=== PATIENT | female | born 1950 | race Caucasian/White ===

== ENCOUNTER 2020-04-07 09:59 | Outpatient (CLI) | payer MEDICARE, OTHER, SELFPAY ==
--- NOTE | ~2020-04-07 | MM_ITS ---
EXAMINATION: MM screening roopa BI w artem HISTORY: Screening mammogram TECHNIQUE: Craniocaudal and mediolateral oblique 3-D tomosynthesis images were obtained and synthetic 2-D images were generated. CAD analysis was submitted and interpreted. COMPARISON: 11/27/2018, 11/21/2017, 11/19/2016 bilateral digital screening mammogram examinations BREAST PARENCHYMAL COMPOSITION: There are scattered areas of fibroglandular density. FINDINGS: There is no evidence of suspicious mass, calcification, or architectural distortion to sugg est malignancy in either breast. There has been no suspicious interval change. IMPRESSION: 1. No mammographic evidence of malignancy. 2. Recommend routine screening mammography in one year. BI-RADS Category 1: Negative Reviewed, dictated and finalized at location A.
== END 2020-04-07 10:00 | disposition home or self-care (01) ==
LOC: ANHIMG 10:03
PROVIDERS: PCP Internal Medicine; Visit Provider Internal Medicine
DX: Z12.31 Encounter for screening mammogram for malignant neoplasm of breast (principal)
CPT/HCPCS: 77063; 77067

== ENCOUNTER 2021-05-06 10:31 | Outpatient (CLI) | payer MEDICARE, OTHER, SELFPAY ==
--- NOTE | ~2021-05-06 | MM_ITS ---
EXAMINATION: MM screening roopa BI w artem HISTORY: Screening mammogram TECHNIQUE: Craniocaudal and mediolateral oblique 3-D tomosynthesis images were obtained and synthetic 2-D images were generated. CAD analysis was submitted and interpreted. COMPARISON: 04/07/2020, 11/27/2018 BREAST PARENCHYMAL COMPOSITION: There are scattered areas of fibroglandular density. FINDINGS: There is no evidence of suspicious mass, calcification, or architectural distortion to sugg est malignancy in either breast. There has been no suspicious interval change. IMPRESSION: 1. No mammographic evidence of malignancy. 2. Recommend routine screening mammography in one year. BI-RADS Category 1: Negative Reviewed, dictated and finalized at location D. DULING COORDINATOR
== END 2021-05-06 10:32 | disposition home or self-care (01) ==
LOC: ANHIMG 10:36
PROVIDERS: PCP Internal Medicine; Visit Provider Internal Medicine
DX: Z12.31 Encounter for screening mammogram for malignant neoplasm of breast (principal)
CPT/HCPCS: 77063; 77067

== ENCOUNTER 2022-05-21 07:14 | Outpatient (CLI) | payer MEDICARE, OTHER, SELFPAY ==
[2022-05-21 07:42] LABS: Hemoglobin A1C 5.3 % (<5.7)
[2022-05-21 08:40] LABS: Alanine Aminotransferase 12 U/L (14-59); Albumin Level 3.6 g/dL (3.4-5.0); Alkaline Phosphatase 106 U/L (46-116); Anion Gap 8 mmol/L (8-16); Aspartate Amino Transferase 16 U/L (15-37); Bilirubin,Total 0.6 mg/dL (0.00-1.00); Blood Urea Nitrogen 14 mg/dL (7-18); Carbon Dioxide 33 mmol/L (21-32); Chloride 103 mmol/L (98-108); Estimated Glomerular Filt Rate 53; Glucose 105 mg/dL (70-99); Osmolality Calculated 298 mOsm/kg (285-295); Potassium 3.7 mmol/L (3.5-5.1); Sodium 144 mmol/L (136-145); Thyroid Stimulating Hormone 1.63 uIU/mL (0.36-3.74); Total Protein 6.7 g/dL (6.4-8.2)
== END 2022-05-21 07:15 | disposition home or self-care (01) ==
LOC: CHSLAB 07:20
PROVIDERS: PCP Internal Medicine; Visit Provider Nurse Practitioner
DX: E03.9 Hypothyroidism, unspecified (principal); R73.01 Impaired fasting glucose; I10 Essential (primary) hypertension
CPT/HCPCS: 36415; 80053; 83036; 84443

== ENCOUNTER 2022-07-01 09:59 | Outpatient (CLI) | payer MEDICARE, SELFPAY ==
--- NOTE | ~2022-07-01 | MM_ITS ---
EXAMINATION: MM screening [facility] BI w artem HISTORY: Screening TECHNIQUE: Craniocaudal and mediolateral oblique 3-D tomosynthesis images were obtained and synthetic 2-D images were generated. CAD analysis was submitted and interpreted. COMPARISON: No prior mammogram is available for comparison at this institution. BREAST PARENCHYMAL COMPOSITION: There are scattered areas of fibroglandular density. FINDINGS: There is no evidence of suspicious mass, calcification, or architectural distortion to sugg est malignancy in either breast. There has been no suspicious interval change. IMPRESSION: 1. No mammographic evidence of malignancy. 2. Recommend routine screening mammography in one year. BI-RADS Category 1: Negative Reviewed, dictated and finalized at location A. CTORY ASSISTANCE OPERATOR
== END 2022-07-01 10:00 | disposition home or self-care (01) ==
PROVIDERS: Visit Provider Nurse Practitioner
DX: Z12.31 Encounter for screening mammogram for malignant neoplasm of breast (principal)
CPT/HCPCS: 77063; 77067

== ENCOUNTER 2022-12-13 07:16 | Outpatient (CLI) | payer MEDICARE, OTHER, SELFPAY ==
[2022-12-13 07:34] LABS: Hematocrit 41.1 % (35.0-42.0); Hemoglobin 13.8 g/dL (11.7-13.8); Mean Corpuscular HGB Conc 33.6 g/dL (32.0-36.0); Mean Corpuscular Hemoglobin 31.9 pg (27.0-31.0); Mean Corpuscular Volume 95.1 fL (78.0-102.0); Mean Platelet Volume 9.2 fl (9.2-11.8); Platelet Count Result 169 K/mm3 (150-420); Red Blood Count 4.32 M/mm3 (4.20-5.40); Red Cell Distribution Width 13.5 % (11.6-14.4); White Blood Count 6.9 K/mm3 (4.8-10.8)
[2022-12-13 08:10] LABS: Hemoglobin A1C 5.7 % (<5.7)
[2022-12-13 08:20] LABS: Alanine Aminotransferase 21 U/L (14-59); Albumin Level 3.5 g/dL (3.4-5.0); Alkaline Phosphatase 91 U/L (46-116); Anion Gap 7 mmol/L (8-16); Aspartate Amino Transferase 16 U/L (15-37); Bilirubin,Total 0.4 mg/dL (0.00-1.00); Blood Urea Nitrogen 19 mg/dL (7-18); Calcium 9.2 mg/dL (8.5-10.1); Carbon Dioxide 31 mmol/L (21-32); Chloride 104 mmol/L (98-108); Estimated Glomerular Filt Rate 59; Glucose 99 mg/dL (70-99); Osmolality Calculated 296 mOsm/kg (285-295); Potassium 3.9 mmol/L (3.5-5.1); Sodium 142 mmol/L (136-145); Thyroid Stimulating Hormone 1.03 uIU/mL (0.36-3.74); Total Protein 6.5 g/dL (6.4-8.2)
== END 2022-12-13 07:17 | disposition home or self-care (01) ==
LOC: CHSLAB 07:19
PROVIDERS: PCP Family Medicine; Visit Provider Family Medicine
DX: E03.9 Hypothyroidism, unspecified (principal); E78.5 Hyperlipidemia, unspecified; R73.01 Impaired fasting glucose; E55.9 Vitamin D deficiency, unspecified
CPT/HCPCS: 36415; 80053; 83036; 84443; 85027

== ENCOUNTER 2023-05-31 07:08 | Outpatient (CLI) | payer MEDICARE, SELFPAY ==
[2023-05-31 07:22] LABS: Hematocrit 42.6 % (35.0-42.0); Hemoglobin 13.9 g/dL (11.7-13.8); Mean Corpuscular HGB Conc 32.6 g/dL (32.0-36.0); Mean Corpuscular Hemoglobin 31.1 pg (27.0-31.0); Mean Corpuscular Volume 95.3 fL (78.0-102.0); Mean Platelet Volume 9.3 fl (9.2-11.8); Platelet Count Result 291 K/mm3 (150-420); Red Blood Count 4.47 M/mm3 (4.20-5.40); Red Cell Distribution Width 13.7 % (11.6-14.4)
[2023-05-31 07:35] LABS: Hemoglobin A1C 5.7 % (<5.7)
[2023-05-31 08:02] LABS: Alanine Aminotransferase 25 U/L (14-59); Albumin Level 3.6 g/dL (3.4-5.0); Alkaline Phosphatase 92 U/L (46-116); Anion Gap 2 mmol/L (8-16); Aspartate Amino Transferase 16 U/L (15-37); Bilirubin,Total 0.5 mg/dL (0.00-1.00); Blood Urea Nitrogen 22 mg/dL (7-18); Calcium 9.1 mg/dL (8.5-10.1); Carbon Dioxide 34 mmol/L (21-32); Chloride 100 mmol/L (98-108); Cholesterol 176 mg/dL (0-200); Estimated Glomerular Filt Rate 51; Glucose 103 mg/dL (70-99); HDL Direct 70 mg/dL (40-60); LDL Cholesterol Calculated 88 mg/dL (<130); Osmolality Calculated 285 mOsm/kg (285-295); Potassium 3.9 mmol/L (3.5-5.1); Sodium 136 mmol/L (136-145); Thyroid Stimulating Hormone 0.56 uIU/mL (0.36-3.74); Total Protein 6.5 g/dL (6.4-8.2); Triglycerides 91 mg/dL (0-150)
[2023-06-03 12:27] LABS: Vitamin D 25 Hydroxy 50 ng/mL (30-100)
== END 2023-05-31 07:09 | disposition home or self-care (01) ==
LOC: CHSLAB 07:11
PROVIDERS: PCP Family Medicine; Visit Provider Family Medicine
DX: F41.1 Generalized anxiety disorder (principal); R73.01 Impaired fasting glucose; I10 Essential (primary) hypertension; E66.01 Morbid (severe) obesity due to excess calories; E03.9 Hypothyroidism, unspecified; E55.9 Vitamin D deficiency, unspecified
CPT/HCPCS: 36415; 80053; 80061; 82306; 83036; 84443; 85027

== ENCOUNTER 2023-09-08 11:19 | Outpatient (CLI) | payer MEDICARE, OTHER, SELFPAY ==
[2023-09-08 11:33] LABS: Hematocrit 43.7 % (35.0-42.0); Hemoglobin 14.2 g/dL (11.7-13.8); Mean Corpuscular HGB Conc 32.5 g/dL (32-36); Mean Corpuscular Hemoglobin 30.5 pg (27.0-31.0); Mean Corpuscular Volume 93.8 fL (78.0-102.0); Mean Platelet Volume 9.4 fl (9.2-11.8); Platelet Count Result 160 K/mm3 (150-420); Red Blood Count 4.66 M/mm3 (4.20-5.40); Red Cell Distribution Width 13.8 % (11.6-14.4); White Blood Count 7.6 K/mm3 (4.8-10.8)
[2023-09-08 12:52] LABS: Anion Gap 8 mmol/L (8-16); Blood Urea Nitrogen 18 mg/dL (7-18); Calcium 9.4 mg/dL (8.5-10.1); Carbon Dioxide 31 mmol/L (21-32); Chloride 103 mmol/L (98-108); Estimated Glomerular Filt Rate > 60; Glucose 73 mg/dL (70-99); Osmolality Calculated 294 mOsm/kg (285-295); Potassium 4.1 mmol/L (3.5-5.1); Sodium 142 mmol/L (136-145)
== END 2023-09-08 11:20 | disposition home or self-care (01) ==
LOC: CHSLAB 11:21
PROVIDERS: PCP Family Medicine; Visit Provider Family Medicine
DX: D58.2 Other hemoglobinopathies (principal); N18.9 Chronic kidney disease, unspecified; I10 Essential (primary) hypertension
CPT/HCPCS: 36415; 80048; 85027

== ENCOUNTER 2023-09-15 08:24 | Outpatient (CLI) | payer MEDICARE, SELFPAY ==
--- NOTE | ~2023-09-15 | MM_ITS ---
EXAMINATION: MM screening [facility] BI w artem HISTORY: Screening mammogram TECHNIQUE: Craniocaudal and mediolateral oblique 3-D tomosynthesis images were obtained and synthetic 2-D images were generated. CAD analysis was submitted and interpreted. COMPARISON: 07/01/2022, 05/06/2021 bilateral screening mammogram examinations BREAST PARENCHYMAL COMPOSITION: There are scattered areas of fibroglandular density. FINDINGS: There is no evidence of suspicious mass, calcification, or architectural distortion to sugg est malignancy in either breast. There has been no suspicious interval change. IMPRESSION: 1. No mammographic evidence of malignancy. 2. Recommend routine screening mammography in one year. BI-RADS Category 1: Negative Reviewed, dictated and finalized at location A.
--- NOTE | ~2023-09-15 | DEXA_ITS ---
Bone Density Report Name: INGRID GUZMAN Age: 72 Sex: Female Ethnicity: White Date of : 1950 Indication: postmenopausal; screening for osteoporosis; height loss; Referring Provider: JUAN LUJAN Study: Bone densitometry was performed. Exam Date: September 15, 2023 Accession number: [id number] Bone Density: Region BMD T-score Z-score Classification AP Spine(L1, L2, L3) 1.013 0.0 2.2 Normal Femoral Neck (Left) 0.729 -1.1 0.9 Osteopenia Total Hip (Left) 1.074 1.1 2.8 Normal Femoral Neck (Right) 0.698 -1.4 0.6 Osteopenia Total Hip (Right) 1.025 0.7 2.4 Normal Total Hip Mean 1.050 0.9 2.6 Normal World Health Organization criteria for BMD impression classify patients as: Normal (T-score at or above -1.0), Osteopenia (T-score between -1.0 and -2.5), or Osteoporosis (T-score at or below -2.5). 10-year Fracture Risk(1): Major Osteoporotic Fracture 8.6% Hip Fracture 1.3% Reported Risk Factors: [place] (), Neck BMD=0.698, BMI=46.2 (1) FRAX(R) Version 3.08. Fracture probability calculated for an untreated patient. Fracture probability may be lower if the patient has received treatment. Previous Exams: Region Exam Age BMD T-score BMD Change BMD Change Date g/cm2 vs Baseline vs Previous Total Hip(Left) 09/15/2023 72 1.074 1.1 -0.020 (-1.8%) -0.020 (-1.8%) 09/14/2018 67 1.094 1.2 Total Hip(Right) 09/15/2023 72 1.025 0.7 -0.016 (-1.6%) -0.016 (-1.6%) 09/14/2018 67 1.041 0.8 *Denotes significance at 95% confidence level, LSC for Total Hip = 0.027 g/cm2 # Denotes dissimilar scan types or analysis methods Clinical Information Provided by Patient: Has used the following medications: Vitamin D, Calcium Patient maximum height was 64 Menopause Age: 48 No regular weight bearing exercise Does not regularly consume dairy products Drinks caffeinated beverages Onset of menses at age 10 Number of children 0 Impression: The patient has low bone mass, based on the Right Femoral Neck T-score. The patient has an estimated ten-year risk of hip fracture of 1.3% and an estimated ten-year risk of major fracture of 8.6%, based on the WHO FRAX algorithm. No significant bone loss was observed. Discussion: BONE DENSITY IS LOW AT ONE OR MORE SKELETAL SITES. This patient's lowest T-score is low at one or more skeletal sites. It meets the World Health Organization's (WHO) criteria for ?low bone mass? (T-score between -1.0 and -2.5). The patient's 10-year
== END 2023-09-15 08:25 | disposition home or self-care (01) ==
PROVIDERS: PCP Family Medicine; Visit Provider Family Medicine
DX: Z12.31 Encounter for screening mammogram for malignant neoplasm of breast (principal); M85.89 Other specified disorders of bone density and structure, multiple sites; Z78.0 Asymptomatic menopausal state
CPT/HCPCS: 77063; 77067; 77080

== ENCOUNTER 2023-12-20 13:55 | Outpatient (CLI) | payer MEDICARE, SELFPAY ==
[2023-12-20 14:12] LABS: Basophils Absolute Auto 0.05 K/mm3 (0.00-0.10); Basophils Percent Auto 0.6 % (0.0-1.0); Eosinophils Absolute Auto 0.16 K/mm3 (0.02-0.50); Eosinophils Percent Auto 1.8 % (1.0-6.0); Hematocrit 43.1 % (35.0-42.0); Hemoglobin 14.3 g/dL (11.7-13.8); Immature Granulocyte Absolute 0.04 K/mm3 (0.00-0.00); Immature Granulocyte Percent A 0.4 % (0.0-0.0); Lymphocytes Absolute Auto 2.34 K/mm3 (1.10-4.50); Lymphocytes Percent Auto 25.7 % (18.0-42.0); Mean Corpuscular HGB Conc 33.2 g/dL (32-36); Mean Corpuscular Hemoglobin 31.1 pg (27.0-31.0); Mean Corpuscular Volume 93.7 fL (78.0-102.0); Mean Platelet Volume 9.8 fl (9.2-11.8); Monocytes Absolute Auto 0.74 K/mm3 (0.10-0.90); Monocytes Percent Auto 8.1 % (2.0-11.0); Neutrophils Absolute Auto 5.76 K/mm3 (1.70-7.20); Neutrophils Percent Auto 63.4 % (50.0-70.0); Platelet Count Result 179 K/mm3 (150-420); Red Cell Distribution Width 13.6 % (11.6-14.4); White Blood Count 9.1 K/mm3 (4.8-10.8)
[2023-12-20 14:45] LABS: Iron 53 ug/dL (50-170); Percent Iron Saturation 17 % (12-57)
[2023-12-23 14:28] LABS: Erythropoietin (EPO) 11.6 mIU/mL (2.6-18.5)
== END 2023-12-20 13:56 | disposition home or self-care (01) ==
PROVIDERS: PCP Family Medicine; Visit Provider Family Medicine
DX: D75.1 Secondary polycythemia (principal); E55.9 Vitamin D deficiency, unspecified; N18.9 Chronic kidney disease, unspecified
CPT/HCPCS: 36415; 82668; 83540; 83550; 85025

== ENCOUNTER 2024-08-13 07:06 | Outpatient (CLI) | payer MEDICARE, SELFPAY ==
--- OUTSIDE RECORDS SUMMARY | 2024-08-13 07:12 | XMS_ITS | Encounter Summary ---
Author Organization [facility] Address [address] [place] [address] Care Team Providers Care Railroad Car Painter Name Role Phone Mary Jerry MD Primary Care Provider [phone] Encounter Details Date Type Department Care Team (Late st Contact Info) Description 01/14/2005 Outpatient Historical HIS MAMM VAN Conversion, History SCREENING MAMM-MAILG NEOPL-OTHER (Primary Dx) Social History Tobacco Use Types Packs/Day Years Used Date Smoking Tobacco: Never Assessed Comments Unknown Sex and Gender Information Value Date Recorded Sex Assigned at Not on file Legal Sex Female 5:08 AM MANAGER OF PROCUREMENT Gender Identity Not on file Sexual Orientation Not on file documented as of this encounter Plan of Treatment Not on file documented as of this encounter Visit Diagnoses Diagnosis Other screening mammogram- Primary documented in this encounter Care Teams Railroad Car Painter Relationship Specialty Start Date End Date Mary Jerry MD [address] [place] [phone] PCP - General 07/29/09 documented as of this encounter
--- OUTSIDE RECORDS SUMMARY | 2024-08-13 07:12 | XMS_ITS | Encounter Summary ---
Author Organization [facility] Address [address] [place] [address] Care Team Providers Care Supervisor Pipeline Name Role Phone Mary Jerry MD Primary Care Provider Encounter Details Date Type Department Care Team (Late st Contact Info) Description 03/19/2002 Outpatient Historical [facility] [address] [place] [address] Car Corrales (Two) Social History Tobacco Use Types Packs/Day Years Used Date Smoking Tobacco: Never Assessed Comments Unknown Sex and Gender Information Value Date Recorded Sex Assigned at Not on file Legal Sex Female 5:08 AM PARTY SUPPLY SPECIALIST Gender Identity Not on file Sexual Orientation Not on file documented as of this encounter Plan of Treatment Not on file documented as of this encounter Visit Diagnoses Not on filedocumented in this encounter Care Teams Supervisor Pipeline Relationship Specialty Start Date End Date Mary Jerry MD [address] [place] [phone] PCP - General 07/29/09 documented as of this encounter
--- OUTSIDE RECORDS SUMMARY | 2024-08-13 07:12 | XMS_ITS | Encounter Summary ---
Author Organization [facility] Address [address] [place] [address] Care Team Providers Care Paperhanger And Painter Name Role Phone Mary Jerry MD Primary Care Provider [phone] Encounter Details Date Type Department Care Team (Late st Contact Info) Description 02/02/2006 Outpatient Historical HIS MAMM VAN Conversion, History Other Screening Mammogram (Primary Dx) Social History Tobacco Use Types Packs/Day Years Used Date Smoking Tobacco: Never Assessed Comments Unknown Sex and Gender Information Value Date Recorded Sex Assigned at Not on file Legal Sex Female 5:08 AM COTTRELL BLOWER Gender Identity Not on file Sexual Orientation Not on file documented as of this encounter Plan of Treatment Not on file documented as of this encounter Visit Diagnoses Diagnosis Other screening mammogram- Primary documented in this encounter Care Teams Paperhanger And Painter Relationship Specialty Start Date End Date Mary Jerry MD [address] [place] [phone] PCP - General 07/29/09 documented as of this encounter
--- OUTSIDE RECORDS SUMMARY | 2024-08-13 07:12 | XMS_ITS | Encounter Summary ---
Author Organization [facility] Address [address] [place] [address] Care Team Providers Care Back Padder Name Role Phone Mary Jerry MD Primary Care Provider [phone] Encounter Details Date Type Department Care Team (Late st Contact Info) Description 07/20/2007 Outpatient Historical HIS MAMM VAN Conversion, History Other Screening Mammogram Social History Tobacco Use Types Packs/Day Years Used Date Smoking Tobacco: Never Assessed Comments Unknown Sex and Gender Information Value Date Recorded Sex Assigned at Not on file Legal Sex Female 5:08 AM SOFTWARE DEVELOPMENT ENGINEER Gender Identity Not on file Sexual Orientation Not on file documented as of this encounter Plan of Treatment Not on file documented as of this encounter Procedures Procedure Name Priority Date/Time Associated Diagnosis Comments MAMMO SCREENING BILAT Routine 07/20/2007 2:18 PM SOFTWARE DEVELOPMENT ENGINEER documented in this encounter Results * MAMMO SCREENING BILAT (07/20/2007 2:18 PM SOFTWARE DEVELOPMENT ENGINEER) Anatomical Region Laterality Modality Breast Bilateral Other 07/20/2007 2:18 PM SOFTWARE DEVELOPMENT ENGINEER Narrative 07/24/2007 4:31 PM SOFTWARE DEVELOPMENT ENGINEER [address] [address] Admit Date: 07/20/2007 DAMARI TURNER Sex: F Admit Prov: DOCTOR, NOT O Date: 1950 Primary Care Prov: CMRN: [id number] Room: [facility] SSN: [id number] IMAGING SERVICES Ordering Prov: DOCTOR, NOT O Accession Number: [id number] Interpretation BILATERAL SCREENING MAMMOGRAMS, 07/20/2007 Comparison Mammograms: 01/14/2005 Findings: The parenchyma is moderately dense bilaterally. There is no mass, malignant calcification, lymphadenopathy or other sign of malignancy. Summary: No mammographic evidence of malignancy. Assessment BIRADS: 1-Negative Recommendation: Normal interval follow-up Dictated by: AILEEN CROFT Electronically signed by: AILEEN CROFT 07/24/2007 16:31 Transcribed: 07/21/2007 13:20 AMK Procedure Note Aileen Croft - 07/24/2007 [facility] [address] [place] [place], [place] [address] Admit Date: 07/20/2007 DAMARI TURNER Sex: F Admit Prov: DOCTOR, NOT O Date: 1950 Primary Care Prov: CMRN: [id number] Room: [facility] SSN: [id number] IMAGING SERVICES Ordering Prov: DOCTOR, NOT O Interpretation BILATERAL SCREENING MAMMOGRAMS, 07/20/2007 Comparison Mammograms: 01/14/2005 Findings: The parenchyma is moderately dense bilaterally. There is nomass, malignant calcification, lymphadenopathy or other sign ofmalignancy. Summary: No mammographic evidence of malignancy. Assessment BIRADS: 1-Negative Recommendation: Normal interval follow-up Dictated by: AILEEN CROFT Electronically signed by: AILEEN CROFT 07/24/2007 16:31 Transcribed: 07/21/2007 13:20 AMK us History Conversion MAMMO ORDERABLES Final Result documented in this encounter Visit Diagnoses Diagnosis Other screening mammogram documented in this encounter Care Teams Back Padder Relationship Specialty Start Date End Date Mary Jerry MD [address] [place] [phone] PCP - General 07/29/09 documented as of this encounter
--- OUTSIDE RECORDS SUMMARY | 2024-08-13 07:12 | XMS_ITS | Clinical Summary ---
Author Organization [facility] Address [address] [place] [address] Phone Care Team Providers Care Lawn Mower Name Role Phone Mary Jerry MD Primary Care Provider [phone] Family History Medical History Relation Name Comments Breast Cancer Neg Hx Cancer Neg Hx Ovarian Cancer Neg Hx Social History Tobacco Use Types Packs/Day Years Used Date Smoking Tobacco: Never Assessed Comments Unknown Sex and Gender Information Value Date Recorded Sex Assigned at Not on file Legal Sex Female 5:08 AM OIL WELL SERVICE OPERATOR HELPER Gender Identity Not on file Sexual Orientation Not on file Plan of Treatment Health Maintenance Due Date Last Done Comments DTAP/TDAP/TD VACCINES (1 - Tdap) 1968 COLORECTAL SCREENING 1994 Colorectal Cancer Screening 1994 FIT-DNA Q 3 years 1994 FIT/FOBT Q 1 year 1994 Flex Sig/CT Colonography Q 5 years 1994 PNEUMOCOCCAL VACCINE 65+ YEA RS (1 of 1 - PCV) 12/21/1999 ZOSTER VACCINE (1 of 2) 12/21/1999 BREAST CANCER SCREENING 07/31/2010 07/31/2009, 07/20 OSTEOPOROSIS SCREENING 2014 INFLUENZA VACCINE (#1) 2024 RSV VACCINE (60+ or ) (1 - 1-dose 75+ series) 2024 Procedures Procedure Name Priority Date/Time Associated Diagnosis Comments MAMMO SCREENING BILAT Routine 07/31/2009 9:02 AM OIL WELL SERVICE OPERATOR HELPER Other Screening Mammogram from Last 3 Months or Most Recently Relevant to Health Maintenance Results * MAMMO SCREENING BILAT (07/31/2009 9:02 AM OIL WELL SERVICE OPERATOR HELPER) Anatomical Region Laterality Modality Breast Bilateral Mammography Impressions 08/01/2009 8:56 AM OIL WELL SERVICE OPERATOR HELPER : No mammographic evidence of malignancy. There has been no significant change from prior study of 07/20/2007. RECOMMENDATIONS: Bilateral yearly screening mammogram is recommended. OVERALL ASSESSMENT: BI-RADS Category: 1, negative. Narrative 08/01/2009 8:56 AM OIL WELL SERVICE OPERATOR HELPER BILATERAL SCREENING MAMMOGRAMS, 07/31/2009 HISTORY: Screening mammogram. FINDINGS: The breasts are almost entirely fat. No significant mass, malignant calcification or architectural distortion is noted. Procedure Note Reina Sewell MD - 08/01/2009 BILATERAL SCREENING MAMMOGRAMS, 07/31/2009 HISTORY: Screening mammogram. FINDINGS: The breasts are almost entirely fat. No significant mass,malignant calcification or architectural distortion is noted. IMPRESSION: No mammographic evidence of malignancy. There has been no significant change from prior study of 07/20/2007. RECOMMENDATIONS: Bilateral yearly screening mammogram is recommended. OVERALL ASSESSMENT: BI-RADS Category: 1, negative. External Provider [facility] MAMMO ORDERABLES Final R esult from Last 3 Months or Most Recently Relevant to Health Maintenance Care Teams Lawn Mower Relationship Specialty Start Date End Date Mary Jerry MD [address] [place] [phone] PCP - General 07/29/09
[2024-08-13 07:26] LABS: Hemoglobin 14.1 g/dL (11.7-13.8); Mean Corpuscular Hemoglobin 30.7 pg (27.0-31.0); Mean Corpuscular Volume 95.9 fL (78.0-102.0); Mean Platelet Volume 9.5 fl (9.2-11.8); Platelet Count Result 149 K/mm3 (150-420); Red Blood Count 4.59 M/mm3 (4.20-5.40); Red Cell Distribution Width 13.5 % (11.6-14.4); White Blood Count 7.2 K/mm3 (4.8-10.8)
[2024-08-13 08:14] LABS: Alanine Aminotransferase 16 U/L (14-59); Albumin Level 3.6 g/dL (3.4-5.0); Alkaline Phosphatase 108 U/L (46-116); Anion Gap 6 mmol/L (4-12); Aspartate Amino Transferase 15 U/L (15-37); Bilirubin,Total 0.6 mg/dL (0.00-1.00); Blood Urea Nitrogen 22 mg/dL (7-18); Calcium 9.3 mg/dL (8.5-10.1); Carbon Dioxide 34 mmol/L (21-32); Chloride 102 mmol/L (98-108); Cholesterol 191 mg/dL (0-200); Estimated Glomerular Filt Rate 55; Glucose 95 mg/dL (70-99); HDL Direct 80 mg/dL (40-60); LDL Cholesterol Calculated 95 mg/dL (<130); Osmolality Calculated 297 mOsm/kg (285-295); Sodium 142 mmol/L (136-145); Thyroid Stimulating Hormone 1.12 uIU/mL (0.36-3.74); Total Protein 6.7 g/dL (6.4-8.2); Triglycerides 78 mg/dL (0-150)
[2024-08-15 03:23] LABS: Vitamin D 25 Hydroxy 52 ng/mL (30-100)
== END 2024-08-13 07:07 | disposition home or self-care (01) ==
LOC: CHSLAB 07:09
PROVIDERS: PCP Family Medicine; Visit Provider Family Medicine
DX: D75.1 Secondary polycythemia (principal); D58.2 Other hemoglobinopathies; N18.9 Chronic kidney disease, unspecified; Z12.11 Encounter for screening for malignant neoplasm of colon; E66.01 Morbid (severe) obesity due to excess calories; I51.89 Other ill-defined heart diseases; E03.9 Hypothyroidism, unspecified; I10 Essential (primary) hypertension; E55.9 Vitamin D deficiency, unspecified; R73.01 Impaired fasting glucose; F41.1 Generalized anxiety disorder
CPT/HCPCS: 36415; 80053; 80061; 82306; 84443; 85027

== ENCOUNTER 2024-09-22 10:14 | Outpatient (CLI) | payer MEDICARE, SELFPAY ==
--- NOTE | ~2024-09-22 | MM_ITS ---
EXAMINATION: MM screening roopa BI w artem HISTORY: Screening TECHNIQUE: Craniocaudal and mediolateral oblique 3-D tomosynthesis images were obtained and synthetic 2-D images were generated. CAD analysis was submitted and interpreted. COMPARISON: Comparison to multiple prior studies sequentially, with oldest reviewed study dated 03/20. BREAST PARENCHYMAL COMPOSITION: Not dense: There are scattered areas of fibroglandular density. FINDINGS: There is no evidence of suspicious mass, calcification, or architectural distortion to sugg est malignancy in either breast. There has been no suspicious interval change. IMPRESSION: 1. No mammographic evidence of malignancy. 2. Recommend routine screening mammography in one year. BI-RADS Category 1: Negative Reviewed, dictated and finalized at location A.
--- OUTSIDE RECORDS SUMMARY | 2024-09-22 10:16 | XMS_ITS | Clinical Summary ---
Author Organization [facility] Address [address] [place] [address] Phone Care Team Providers Care Supervisor Pre Wave Name Role Phone Mary Jerry MD Primary Care Provider [phone] Family History Medical History Relation Name Comments Breast Cancer Neg Hx Cancer Neg Hx Ovarian Cancer Neg Hx Social History Tobacco Use Types Packs/Day Years Used Date Smoking Tobacco: Never Assessed Comments Unknown Sex and Gender Information Value Date Recorded Sex Assigned at Not on file Legal Sex Female 5:08 AM ELECTRIC FAN ASSEMBLER Gender Identity Not on file Sexual Orientation Not on file Plan of Treatment Health Maintenance Due Date Last Done Comments DTAP/TDAP/TD VACCINES (1 - Tdap) 1968 COLORECTAL SCREENING 1994 Colorectal Cancer Screening 1994 FIT-DNA Q 3 years 1994 FIT/FOBT Q 1 year 1994 Flex Sig/CT Colonography Q 5 years 1994 PNEUMOCOCCAL VACCINE 50+ YEA RS (1 of 1 - PCV) 12/21/1999 ZOSTER VACCINE (1 of 2) 12/21/1999 BREAST CANCER SCREENING 07/31/2010 07/31/2009, 07/20 OSTEOPOROSIS SCREENING 2014 INFLUENZA VACCINE (#1) 2024 RSV VACCINE (60+ or ) (1 - 1-dose 75+ series) 2024 Procedures Procedure Name Priority Date/Time Associated Diagnosis Comments MAMMO SCREENING BILAT Routine 07/31/2009 9:02 AM ELECTRIC FAN ASSEMBLER Other Screening Mammogram from Last 3 Months or Most Recently Relevant to Health Maintenance Results * MAMMO SCREENING BILAT (07/31/2009 9:02 AM ELECTRIC FAN ASSEMBLER) Anatomical Region Laterality Modality Breast Bilateral Mammography Impressions 08/01/2009 8:56 AM ELECTRIC FAN ASSEMBLER : No mammographic evidence of malignancy. There has been no significant change from prior study of 07/20/2007. RECOMMENDATIONS: Bilateral yearly screening mammogram is recommended. OVERALL ASSESSMENT: BI-RADS Category: 1, negative. Narrative 08/01/2009 8:56 AM ELECTRIC FAN ASSEMBLER BILATERAL SCREENING MAMMOGRAMS, 07/31/2009 HISTORY: Screening mammogram. [...] ASSESSMENT: BI-RADS Category: 1, negative. External Provider [facility] MAMMO ORDERABLES Final R esult from Last 3 Months or Most Recently Relevant to Health Maintenance Care Teams Supervisor Pre Wave Relationship Specialty Start Date End Date Mary Jerry MD [address] [place] [phone] PCP - General 07/29/09
--- OUTSIDE RECORDS SUMMARY | 2024-09-22 10:16 | XMS_ITS | Encounter Summary ---
Author Organization [facility] Address [address] [place] [address] Care Team Providers Care Instrument Maker Apprentice Name Role Phone Mary Jerry MD Primary Care Provider [phone] Encounter Details Date Type Department Care Team (Late st Contact Info) Description 03/19/2002 Outpatient Historical [facility] [address] [place] [address] Car Corrales (Two) Social History Tobacco Use Types Packs/Day Years Used Date Smoking Tobacco: Never Assessed Comments Unknown Sex and Gender Information Value Date Recorded Sex Assigned at Not on file Legal Sex Female 5:08 AM WRECKING CAR DRIVER Gender Identity Not on file Sexual Orientation Not on file documented as of this encounter Plan of Treatment Not on file documented as of this encounter Visit Diagnoses Not on filedocumented in this encounter Care Teams Instrument Maker Apprentice Relationship Specialty Start Date End Date Mary Jerry MD [address] [place] [phone] PCP - General 07/29/09 documented as of this encounter
--- OUTSIDE RECORDS SUMMARY | 2024-09-22 10:16 | XMS_ITS | Encounter Summary ---
Author Organization [facility] Address [address] [place] [address] Care Team Providers Care Caterpillar Mechanic Name Role Phone Mary Jerry MD Primary Care Provider [phone] Encounter Details Date Type Department Care Team (Late st Contact Info) Description 02/02/2006 Outpatient Historical HIS MAMM VAN Conversion, History Other Screening Mammogram (Primary Dx) Social History Tobacco Use Types Packs/Day Years Used Date Smoking Tobacco: Never Assessed Comments Unknown Sex and Gender Information Value Date Recorded Sex Assigned at Not on file Legal Sex Female 5:08 AM BUSHLER Gender Identity Not on file Sexual Orientation Not on file documented as of this encounter Plan of Treatment Not on file documented as of this encounter Visit Diagnoses Diagnosis Other screening mammogram- Primary documented in this encounter Care Teams Caterpillar Mechanic Relationship Specialty Start Date End Date Mary Jerry MD [address] [place] [phone] PCP - General 07/29/09 documented as of this encounter
--- OUTSIDE RECORDS SUMMARY | 2024-09-22 10:16 | XMS_ITS | Encounter Summary ---
Author Organization [facility] Address [address] [place] [address] Care Team Providers Care Squeegee Operator Name Role Phone Mary Jerry MD Primary Care Provider [phone] Encounter Details Date Type Department Care Team (Late st Contact Info) Description 07/20/2007 Outpatient Historical HIS MAMM VAN Conversion, History Other Screening Mammogram Social History Tobacco Use Types Packs/Day Years Used Date Smoking Tobacco: Never Assessed Comments Unknown Sex and Gender Information Value Date Recorded Sex Assigned at Not on file Legal Sex Female 5:08 AM SEPHORA PRODUCT CONSULTANT Gender Identity Not on file Sexual Orientation Not on file documented as of this encounter Plan of Treatment Not on file documented as of this encounter Procedures Procedure Name Priority Date/Time Associated Diagnosis Comments MAMMO SCREENING BILAT Routine 07/20/2007 2:18 PM SEPHORA PRODUCT CONSULTANT documented in this encounter Results * MAMMO SCREENING BILAT (07/20/2007 2:18 PM SEPHORA PRODUCT CONSULTANT) Anatomical Region Laterality Modality Breast Bilateral Other 07/20/2007 2:18 PM SEPHORA PRODUCT CONSULTANT Narrative 07/24/2007 4:31 PM SEPHORA PRODUCT CONSULTANT [address] [address] Admit Date: 07/20/2007 DAMARI TURNER Sex: F Admit Prov: DOCTOR, NOT O Date: 1950 Primary Care Prov: CMRN: [id number] Room: [facility] SSN: [id number] IMAGING SERVICES Ordering Prov: DOCTOR, NOT O Accession Number: [id number] Interpretation BILATERAL SCREENING MAMMOGRAMS, 07/20/2007 Comparison Mammograms: 01/14/2005 Findings: The parenchyma is moderately dense bilaterally. There is no mass, malignant calcification, lymphadenopathy or other sign of malignancy. Summary: No mammographic evidence of malignancy. Assessment BIRADS: 1-Negative Recommendation: Normal interval follow-up Dictated by: AILEEN CROFT Electronically signed by: AILEEN CROFT 07/24/2007 16:31 Transcribed: 07/21/2007 13:20 AMK Procedure Note Aileen Croft - 07/24/2007 [facility] [address], [place] [address] Admit Date: 07/20/2007 DAMARI TURNER Sex: F Admit Prov: DOCTOR, NOT O Date: 1950 Primary Care Prov: CMRN: [id number] Room: [facility] SSN: [id number] IMAGING SERVICES Ordering Prov: DOCTOR, NOT O [...] mammogram documented in this encounter Care Teams Squeegee Operator Relationship Specialty Start Date End Date Mary Jerry MD [address] [place] [phone] PCP - General 07/29/09 documented as of this encounter
--- OUTSIDE RECORDS SUMMARY | 2024-09-22 10:16 | XMS_ITS | Encounter Summary ---
Author Organization [facility] Address [address] [place] [address] Care Team Providers Care Copy Operator Name Role Phone Mary Jerry MD Primary Care Provider [phone] Encounter Details Date Type Department Care Team (Late st Contact Info) Description 01/14/2005 Outpatient Historical HIS MAMM VAN Conversion, History SCREENING MAMM-MAILG NEOPL-OTHER (Primary Dx) Social History Tobacco Use Types Packs/Day Years Used Date Smoking Tobacco: Never Assessed Comments Unknown Sex and Gender Information Value Date Recorded Sex Assigned at Not on file Legal Sex Female 5:08 AM KINDER TEACHER Gender Identity Not on file Sexual Orientation Not on file documented as of this encounter Plan of Treatment Not on file documented as of this encounter Visit Diagnoses Diagnosis Other screening mammogram- Primary documented in this encounter Care Teams Copy Operator Relationship Specialty Start Date End Date Mary Jerry MD [address] [place] [phone] PCP - General 07/29/09 documented as of this encounter
== END 2024-09-22 10:15 | disposition home or self-care (01) ==
PROVIDERS: PCP Family Medicine; Visit Provider Family Medicine
DX: Z12.31 Encounter for screening mammogram for malignant neoplasm of breast (principal)
CPT/HCPCS: 77063; 77067